=== PATIENT | female | born 1945 | race African-American/Black ===

== ENCOUNTER 2018-01-13 08:36 | Outpatient (CLI) | payer MEDICARE, OTHER ==
--- NOTE | 2018-01-13 10:45 | MMO ---
BILATERAL SCREENING MAMMOGRAM: Date: 01/13/18 HISTORY: 72-year-old female. Routine screening mammography. COMPARISON: 09/01/16, 08/18/16, 06/13/13. TECHNIQUE: CC and MLO views of both breasts are submitted for interpretation. This patient's mammogram was reviewed with the assistance of computer-aided detection. FINDINGS: The breasts are composed of scattered fibroglandular tissue. Bilaterally, no suspicious dominant mass , architectural distortion, or suspicious calcifications. Stable nodule in the upper outer right n[address] st, measuring 2.5 cm. There are bilateral benign-appearing calcifications. IMPRESSION: BIRADS 2: Benign Finding(s) RECOMMENDATION: Annual mammogram. POS: RAJESH
== END 2018-01-13 08:37 | disposition home or self-care (01) ==
LOC: SCSMAMMO 08:36
PROVIDERS: ATTEND Family Medicine
DX: Z12.31 Encounter for screening mammogram for malignant neoplasm of breast (principal)
CPT/HCPCS: 77067

== ENCOUNTER 2020-04-01 14:08 | Outpatient (CLI) | payer MEDICARE, OTHER ==
--- NOTE | 2020-04-01 14:34 | MMO ---
Bilateral MAMMO Bilat Screen [facility]. CLINICAL HISTORY: Patient is 74 years old and is seen for screening. The patient has no family history of breast cancer. The patient has no personal history of cancer. VIEWS: The views performed were: bilateral craniocaudal with tomosynthesis and bilateral mediolateral oblique with tomosynthesis. FILMS COMPARED: The present examination has been compared to prior imaging studies performed at [facility] on 01/13/2018, at [facility] on 09/01/2016, and at [facility] on 03/24/2019. This study has been interpreted with the assistance of computer-aided detection. MAMMOGRAM FINDINGS: There are scattered fibroglandular densities. There is a stable mass seen in the right breast. There are no suspicious masses, suspicious calcifications, or new areas of architectural distortion. IMPRESSION: THERE IS NO MAMMOGRAPHIC EVIDENCE OF MALIGNANCY. A ROUTINE FOLLOW-UP MAMMOGRAM IN 1 YEAR IS RECOMMENDED. THE RESULTS OF THIS EXAM WERE SENT TO THE PATIENT. ACR BI-RADS Category 2 - Benign finding MAMMOGRAPHY NOTE: 1. A negative mammogram report should not delay a biopsy if a dominant of clinically suspicious mass is present. 2. Approximately 10% to 15% of breast cancers are not detected by mammography. 3. Adenosis and dense breasts may obscure an underlying neoplasm. Reported by: CARLOS SCHNEIDER MD Electonically Signed: [id number]
== END 2020-04-01 14:09 | disposition home or self-care (01) ==
LOC: BICMAMMO 14:08
PROVIDERS: ATTEND Family Medicine
DX: Z12.31 Encounter for screening mammogram for malignant neoplasm of breast (principal)
CPT/HCPCS: 77063; 77067

== ENCOUNTER 2021-04-03 08:48 | Outpatient (CLI) | payer MEDICARE, OTHER | END 2021-04-03 08:49 | disposition home or self-care (01) | LOC: BICMAMMO 08:48 | PROVIDERS: ATTEND Family Medicine | DX: Z12.31 Encounter for screening mammogram for malignant neoplasm of breast (principal) | CPT/HCPCS: 77063; 77067 ==

== ENCOUNTER 2022-04-10 13:07 | Outpatient (CLI) | payer MEDICARE, OTHER | END 2022-04-10 13:08 | disposition home or self-care (01) | LOC: BICMAMMO 13:07 | PROVIDERS: ATTEND Family Medicine | DX: Z12.31 Encounter for screening mammogram for malignant neoplasm of breast (principal) | CPT/HCPCS: 77063; 77067 ==

== ENCOUNTER 2023-04-20 13:47 | Outpatient (CLI) | payer MEDICARE, OTHER | END 2023-04-20 13:48 | disposition home or self-care (01) | LOC: BICMAMMO 13:47 | PROVIDERS: ATTEND Family Medicine | DX: Z12.31 Encounter for screening mammogram for malignant neoplasm of breast (principal) | CPT/HCPCS: 77063; 77067 ==

== ENCOUNTER 2024-04-18 11:16 | Outpatient (CLI) | payer MEDICARE, OTHER | END 2024-04-18 11:17 | disposition home or self-care (01) | LOC: BICMAMMO 11:16 | PROVIDERS: ATTEND Family Medicine | DX: Z12.31 Encounter for screening mammogram for malignant neoplasm of breast (principal) | CPT/HCPCS: 77063; 77067 ==

== ENCOUNTER 2025-04-27 09:50 | Outpatient (CLI) | payer MEDICARE, OTHER | END 2025-04-27 09:51 | disposition home or self-care (01) | LOC: BICMAMMO 09:50 | PROVIDERS: ATTEND Family Medicine | DX: Z12.31 Encounter for screening mammogram for malignant neoplasm of breast (principal) | CPT/HCPCS: 77063; 77067 ==

== ENCOUNTER 2025-05-02 10:40 | Outpatient (CLI) | payer OTHER | END 2025-05-02 10:41 | disposition home or self-care (01) | LOC: BICMAMMO 10:40 | PROVIDERS: ATTEND Family Medicine | DX: Z78.0 Asymptomatic menopausal state (principal); M85.89 Other specified disorders of bone density and structure, multiple sites | CPT/HCPCS: 77080 ==